=== PATIENT | female | born 1995 | race Caucasian/White ===

== ENCOUNTER 2022-09-21 10:11 | Day surgery (SDC) | payer OTHER ==
[2022-09-20 15:59] VITALS: BMI 18.9
[2022-09-21] MEDS ORDERED: Magnevist 469MG/ML 20 ML VIAL ONE (10:54)
[2022-09-21] MEDS ORDERED: Succinylcholine Chloride 100 MG/5 ML SYRINGE FS ONE (12:30)
[2022-09-21] MEDS ORDERED: PROPOFOL 200 MG/20 ML VIAL ONE (12:30)
== END 2022-09-21 14:14 | disposition home or self-care (01) ==
LOC: MRI 10:11
PROVIDERS: ATTEND Surgery
DX: N82.3 Fistula of vagina to large intestine (principal); Q51.28 Other and unspecified doubling of uterus; N88.2 Stricture and stenosis of cervix uteri; N85.8 Other specified noninflammatory disorders of uterus; R56.9 Unspecified convulsions; H90.5 Unspecified sensorineural hearing loss; Z79.899 Other long term (current) drug therapy; Z88.1 Allergy status to other antibiotic agents
CPT/HCPCS: 72197